=== PATIENT | male | born 2000 | race African-American/Black ===

== ENCOUNTER 2020-05-03 11:01 | Outpatient (CLI) | payer OTHER ==
--- NOTE | 2020-05-03 11:13 | RAD ---
EXAM: 3 views of the left great toe HISTORY: Toe pain COMPARISON: None FINDINGS: There is a comminuted fracture of the proximal aspect of the distal phalanx which is intra- articular. Moderate overlying soft tissue swelling is seen. No degenerative changes are present. No radiopaque foreign body is seen. IMPRESSION: Intra-articular distal phalanx fracture of the great toe
== END 2020-05-03 11:02 | disposition home or self-care (01) ==
LOC: RAD-FRANK 11:01
PROVIDERS: ATTEND Nurse Practitioner Family
DX: M79.675 Pain in left toe(s) (principal); S92.422A Displaced fracture of distal phalanx of left great toe, initial encounter for closed fracture